=== PATIENT | female | born 2000 | race Caucasian/White ===

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

== ENCOUNTER → 2019-12-17 13:43 | Outpatient (CLI) | payer OTHER ==
[~2019-12-17 13:43] MED LIST: NAPROSYN500 MG PO
== END | disposition home or self-care (01) ==
LOC: D.US 12-09 08:30
PROVIDERS: ATTEND Family Medicine
DX: N63.23 Unspecified lump in the left breast, lower outer quadrant (principal)

== ENCOUNTER → 2019-12-31 10:30 | Outpatient (CLI) | payer OTHER | END | disposition home or self-care (01) | LOC: D.US 10:30 | PROVIDERS: ATTEND Family Medicine | DX: N63.21 Unspecified lump in the left breast, upper outer quadrant (principal) ==

== ENCOUNTER 2020-02-01 06:28 | Day surgery (SDC) | payer OTHER ==
[~2020-02-01] VITALS: Ht 167.6 cm; Wt 54.4 kg
--- NOTE | ~2020-02-01 | OP ---
PATIENT NAME: RACHNA MERRITT MEDICAL RECORD: [id number] :99 LOCATION:[facility] ADMISSION DATE: SURGEON: CONOR NAJERA MD DATE OF OPERATION: 02/01/2020 PREOPERATIVE DIAGNOSIS: Left breast fibroadenoma. POSTOPERATIVE DIAGNOSIS: Left breast fibroadenoma. PROCEDURE: Excision of 7 cm left breast fibroadenoma. SURGEON: Conor Najera MD REPORT OF PROCEDURE: The patient's left breast was prepped and draped in sterile fashion. A semicircular incision was made at the superior and lateral aspect of the nipple areolar complex. Electrocautery was used to dissect through the subcutaneous tissues. The mass was seated in the left upper outer quadrant. We dissected through the subcutaneous tissues and breast tissue until we encountered this mass. The mass was completely excised using electrocautery. Once we had the mass excised, we were able to measure it and it was 5 x 7 cm in length. We inspected the wound bed and any bleeding that was found was treated with electrocautery. We then irrigated out the wound with normal saline. The subcutaneous tissues were all reapproximated with interrupted 3-0 Vicryl and the skin was closed with running subcutaneous 5-0 Monocryl. A total of 10 mL of 0.25% Marcaine plain was infused into the surrounding tissues. COMPLICATIONS: None. CONDITION: Stable. ANESTHESIA: General endotracheal and local. BLOOD LOSS: 30 mL. TRANSINT:[id number] Voice Confirmation ID: [id number] DOCUMENT ID: [id number] CONOR NAJERA MD CC: SHANNON TUCKER MD [id number] DICTATION DATE: 02/01/20 1052 [employer]OM[employer]QUIP[employer] SPECIALIST: 02/01/201932 [facility] 02/01/20 [facility] [address] [place] [address]
[~2020-02-01 06:28] MED LIST changes: +OMEPRAZOLE40 MG
[2020-02-01 07:01] LABS: BASOPHILS 0.2 % (0-2); EOSINOPHILS 1.8 % (0-7); HEMATOCRIT 43.2 % (36.0-48.0); HEMOGLOBIN 14.3 g/dL (12-16); IMMATURE GRANULOCYTES 0.4 % (0-5); LYMPHOCYTES 32.2 % (15-50); MCH 31.8 pg (26.0-34.0); MCHC 33.1 g/dL (31.0-37.0); MCV 96.2 fL (80.0-100.0); MEAN PLATELET VOLUME 10.7 fL (7.4-10.4); MONOCYTES 7.2 % (2-11); NEUTROPHILS 58.2 % (40-80); PLATELET COUNT 253 10x3/uL (130-400); RBC 4.49 10x6/uL (4.00-5.40); WBC 5.1 10x3/uL (4.8-10.8)
[2020-02-01 07:08] LABS: CALC OSMOLALITY 274 mosm/kg (275-300); CALCIUM 8.9 mg/dL (8.5-10.1); CARBON DIOXIDE 25.5 mmol/L (21.0-32.0); CHLORIDE - SERUM 105 mmol/L (98-107); CREATININE - SERUM 0.8 mg/dL (0.6-1.3); GLUCOSE 89 mg/dL (74-106); POTASSIUM - SERUM 3.5 mmol/L (3.5-5.1); SODIUM 139 mmol/L (136-145); UREA NITROGEN 8 mg/dL (7-18); eGFR NON AFRICAN AMERICAN > 90 mL/min (90-120)
[2020-02-01 07:24] VITALS: BP 103/63; Ht 167.6 cm; Wt 54.4 kg
[2020-02-01 07:41] LABS: HCG SERUM NEGATIVE (NEGATIVE)
[2020-02-01] MEDS ORDERED: ULTRAM50 MG PO (10:47)
== END 2020-02-01 12:20 | disposition home or self-care (01) ==
LOC: D.OPS 06:28 → D.PAN 09:00 → D.OPS 09:00
PROVIDERS: Anesthesiology; ATTEND Surgery
DX: D24.2 Benign neoplasm of left breast (principal)